=== PATIENT | female | born 1990 | race Caucasian/White ===

== ENCOUNTER 2016-10-27 22:12 | Emergency (ER) | payer SELFPAY ==
[~2016-10-27] VITALS: Ht 162.6 cm; Wt 83.9 kg
[~2016-10-27 22:12] MED LIST: NO MEDS
[2016-10-27 22:29] VITALS: BP 138/82
[2016-10-27] MEDS ORDERED: predniSONE 20 MG TABLET ONE (23:59)
[2016-10-28] MEDS ORDERED: ALBUTEROL FS 2.5 MG/3 ML VIAL.NEB NEB ONE
[2016-10-28] MEDS ORDERED: predniSONE 20 MG TABLET PO ONE
[2016-10-28] MEDS ORDERED: ALBUTEROL FS 2.5 MG/3 ML VIAL.NEB ONE (00:09)
== END 2016-10-28 00:38 | disposition home or self-care (01) ==
LOC: ER 22:20
DX: J20.9 Acute bronchitis, unspecified (principal); F17.200 Nicotine dependence, unspecified, uncomplicated; Z90.49 Acquired absence of other specified parts of digestive tract
CPT/HCPCS: 71010; 94640; 99283; A4606; J7512; Z7610

== ENCOUNTER 2016-12-22 20:58 | Emergency (ER) | payer SELFPAY ==
[~2016-12-22] VITALS: Ht 165.1 cm; Wt 83.9 kg
[2016-12-22 21:13] VITALS: BP 125/69
== END 2016-12-22 23:08 | disposition home or self-care (01) ==
LOC: ER 21:11
DX: K61.1 Rectal abscess (principal); F17.200 Nicotine dependence, unspecified, uncomplicated; Z90.49 Acquired absence of other specified parts of digestive tract
CPT/HCPCS: 99283; A4606; Z7610

== ENCOUNTER 2016-12-25 15:18 | Emergency (ER) | payer SELFPAY ==
[2016-12-25 17:33] VITALS: BP 112/46
== END 2016-12-25 17:35 | disposition home or self-care (01) ==
LOC: ER 15:20
DX: L05.01 Pilonidal cyst with abscess (principal); F17.210 Nicotine dependence, cigarettes, uncomplicated
CPT/HCPCS: 10080; 99283; A4606; Z7610

== ENCOUNTER 2017-07-18 19:46 | Emergency (ER) | payer SELFPAY ==
[~2017-07-18] VITALS: Ht 162.6 cm; Wt 88.0 kg
--- NOTE | 2017-07-18 20:26 | NUR ---
PATIENT PRESENTS TO ER C/O CONSTIPATION X 3 WEEKS. PATIENT ADMITS TO USING ALL TYPES OF LAXATIVES AND 1 ENEMA THIS MORNING. PATIENT IS A/OX 4. BREATHING EVEN AND UNLABORED. NO SOB. VITALS STABLE. SAFETY AND COMFORT MEASURES IN PLACE. AWAITING MD ORDERS.
[2017-07-18] MEDS ORDERED: KETOROLAC TROMETHAMINE INJ 30 MG/ML VIAL ONE (20:55)
[2017-07-18] MEDS ORDERED: ONDANSETRON HCL/PF 4 MG/2 ML VIAL ONE (20:55)
--- NOTE | 2017-07-18 20:55 | NUR ---
BLOOD AND URINE SAMPLE SENT TO LAB
[2017-07-18] MEDS ORDERED: KETOROLAC TROMETHAMINE INJ 30 MG/ML VIAL IV ONE (21:00)
[2017-07-18] MEDS ORDERED: ONDANSETRON HCL/PF - ER 4 MG/2 ML VIAL IV ONE (21:00)
[2017-07-18] MEDS ORDERED: IV NS 0.9% 1,000 ML BAG IV ONE (21:00)
[2017-07-18 21:03] LABS: BASOPHILS # (AUTO) 0.2 /CMM (0.0-0.2); BASOPHILS % (AUTO) 1.7 % (0.0-2.0); EOSINOPHILS # (AUTO) 0.1 /CMM (0.0-0.7); EOSINOPHILS % (AUTO) 0.9 % (0.0-6.0); HEMATOCRIT 41 % (33-45); HEMOGLOBIN 13.7 g/dL (11.5-14.8); LYMPHOCYTES # (AUTO) 4.4 /CMM (0.8-4.8); LYMPHOCYTES % (AUTO) 29.9 % (20.0-44.0); MEAN CORPUSCULAR HEMOGLOBIN 30 PG (26.0-33.0); MEAN CORPUSCULAR HGB CONC 33 g/dl (31.0-36.0); MEAN CORPUSCULAR VOLUME 91 fL (82-100); MONOCYTES # (AUTO) 0.7 /CMM (0.1-1.30); MONOCYTES % (AUTO) 4.5 % (2.0-12.0); NEUTROPHILS # (AUTO) 9.3 /CMM (1.8-8.9); PLATELET COUNT (AUTO) 269 /CMM (150-450); RDW COEFFICIENT OF VARIATION 12.4 (11.5-15.0); RED BLOOD CELL COUNT(AUTO) 4.53 MIL/uL (4.0-5.2); WHITE BLOOD COUNT (AUTO) 14.7 K/uL (4.3-11.0)
[2017-07-18 21:06] LABS: APPEARANCE,URINE Cloudy (CLEAR); BILIRUBIN,URINE Negative (NEGATIVE); BLOOD, URINE Trace-lysed Ery/uL (NEGATIVE); COLOR,URINE Yellow (YELLOW); KETONES,URINE Trace (NEGATIVE); LEUKOCYTE ESTERASE ,URINE Small (NEGATIVE); NITRITE, URINE Negative (NEGATIVE); PROTEIN,URINE Negative (NEGATIVE); UGLUCOSE Negative (NEGATIVE); UROBILINOGEN,URINE 0.2 EU/dL (0.2)
--- NOTE | 2017-07-18 21:12 | NUR ---
XRAY AT BS
[2017-07-18 21:16] LABS: CALCIUM, SERUM 9.1 mg/dL (8.5-10.1); CREATININE 0.7 mg/dL (0.6-1.3); POTASSIUM 3.9 mmol/L (3.5-5.1)
[2017-07-18 21:17] LABS: INR 0.97 (0.87-1.13); PROTHROMBIN TIME 10.1 SECS (9.5-12.7)
[2017-07-18 21:20] LABS: BACTERIA,URINE Moderate /HPF (None Seen); RBC,URINE 0-2 /HPF (0-2); SQUAMOUS EPITHELIAL CELL,UR Moderate /HPF (None Seen)
[2017-07-18 21:28] LABS: BILIRUBIN,TOTAL 0.2 mg/dL (0.2-1.0)
[2017-07-18 21:29] LABS: ALBUMIN 3.6 g/dL (3.4-5.0)
--- NOTE | 2017-07-18 22:22 | NUR ---
PT TO [facility]SCAN
[2017-07-18] MEDS ORDERED: NA PHOS,M-B/NA PHOS,DI-BA 1 EA ENEMA RC ONE ×2 (22:30→22:33)
[2017-07-19 00:18] VITALS: BP 114/67
[2017-07-19] MEDS ORDERED: MAGNESIUM HYDROXIDE 30 ML UDC ONE (00:18)
[2017-07-19] MEDS: MAGNESIUM HYDROXIDE 30 ML UDC PO ONE ×2 (00:19→00:21)
--- NOTE | 2017-07-19 00:19 | NUR ---
MEDICATED PT ORDERED
--- NOTE | 2017-07-19 00:19 | NUR ---
Patient discharged to home in stable condition. Written and verbal after care instructions given. Patient verbalizes understanding of instruction.IV removed. Catheter intact and site benign. Pressure and 4x4 applied to site. No bleeding noted. PT ambulatory with a steady gait VITAL SIGNS WITHIN NORMAL LIMITS.
== END 2017-07-19 00:19 | disposition home or self-care (01) ==
LOC: ER 19:48
DX: K59.00 Constipation, unspecified (principal); F17.200 Nicotine dependence, unspecified, uncomplicated
CPT/HCPCS: 36415; 74020; 74176; 80048; 80076; 81001; 83690; 84703; 85025; 85730; 87086; 96361; 96374; 96375; 99285; A4606; J1885; J2405 ×2; J7030; Z7610; 81000-TC